=== PATIENT | female | born 1980 | race Two or more races ===

== ENCOUNTER → 2018-04-13 | Outpatient (CLI) | payer BC | END | disposition home or self-care (01) | LOC: CFH 15:48 | PROVIDERS: ATTEND Family Medicine | DX: E04.1 Nontoxic single thyroid nodule (principal); Z86.39 Personal history of other endocrine, nutritional and metabolic disease | CPT/HCPCS: 76536 ==

== ENCOUNTER → 2020-02-29 | Outpatient (CLI) | payer OTHER ==
[2020-02-29 12:43] LABS: BASOPHILS % (AUTO) 1 % (0-1); EOSINOPHILS % (AUTO) 2 % (1-7); LYMPHOCYTES % (AUTO) 34 % (22-44); MEAN CORPUSCULAR HEMOGLOBIN 20.7 pg (27.0-34.8); MEAN CORPUSCULAR HGB CONC 30.6 g/dL (32.4-35.8); MICROSCOPIC NOT IND; MONOCYTES % (AUTO) 9 % (2-9); NEUTROPHILS % (AUTO) 55 % (42-75); PLATELET COUNT 388 x10^3/uL (130-400); RED BLOOD COUNT 4.95 x10^6/uL (3.82-5.3); RED CELL DISTRIBUTION WIDTH 19.4 % (9.6-15.2)
[2020-02-29 12:51] LABS: CHLORIDE 107 mmol/L (98-107)
[2020-02-29 13:20] LABS: MD MORPH REVIEW ONLY
[2020-02-29 13:21] LABS: ANISOCYTOSIS 1+; MICROCYTOSIS 1+; OVALOCYTES 1+
[2020-02-29 13:22] LABS: <PLATELET ESTIMATE> ADEQUATE; <PLT MORPHOLOGY> NORMAL PLT MORPH; HYPOCHROMIA 1+
[2020-02-29 13:30] LABS: % IRON SATURATION 5 % (20-55); ALANINE AMINOTRANSFERASE 65 U/L (12-78); ALBUMIN 3.9 g/dL (3.4-5.0); ALKALINE PHOSPHATASE 74 U/L (45-117); ANION GAP 8 mmol/L (5-15); BILIRUBIN,TOTAL 0.6 mg/dL (0.2-1.0); CALCIUM 9.1 mg/dL (8.5-10.1); CHOL/HDL RATIO 4.2; CHOLESTEROL, TOTAL 190 mg/dL (140-239); CREATININE 0.81 mg/dL (0.55-1.02); FREE T4 (FREE THYROXINE) 1.03 ng/dL (0.76-1.46); HDL CHOL % 24 % (28-40); HDL CHOLESTEROL (DIRECT) 45 mg/dL (40-60); IRON LEVEL 26 mcg/dL (50-170); LDL CHOLESTEROL,CALCULATED 125 mg/dL (54-169); LDL/HDL RATIO 2.8 (0.5-3.0); TOTAL IRON BINDING CAPACITY 525 mcg/dL (250-450); TOTAL PROTEIN 8.4 g/dL (6.4-8.2); TRIGLYCERIDES 101 mg/dL (50-200); VLDL CHOLESTEROL 20 mg/dL (0-25)
== END | disposition home or self-care (01) ==
LOC: LAB 12:00
PROVIDERS: ATTEND Family Medicine
DX: Z00.01 Encounter for general adult medical examination with abnormal findings (principal); E78.2 Mixed hyperlipidemia; E04.9 Nontoxic goiter, unspecified; D64.9 Anemia, unspecified; R10.9 Unspecified abdominal pain
CPT/HCPCS: 36415; 80053; 80061; 81003; 82728; 83540; 83550; 84439; 84442; 84443; 84445; 84480; 85025; 86376; 86800; 87086

== ENCOUNTER → 2020-03-14 | Outpatient (CLI) | payer BC, OTHER | END | disposition home or self-care (01) | LOC: CFH 12:25 | PROVIDERS: ATTEND Family Medicine | DX: Z12.31 Encounter for screening mammogram for malignant neoplasm of breast (principal); E04.1 Nontoxic single thyroid nodule; Z86.39 Personal history of other endocrine, nutritional and metabolic disease | CPT/HCPCS: 76536; 77063; 77067 ==

== ENCOUNTER 2020-10-02 07:58 | Emergency (ER) | payer OTHER ==
[~2020-10-02] VITALS: Ht 167.6 cm; Wt 90.0 kg
[2020-10-02 08:21] VITALS: BP 123/79
--- NOTE | 2020-10-02 08:26 | NUR ---
pt presents to ed from employee health requesting a covid test to be cleared to go back to workl. pt states they are having allergies and need neg covid test to return to work. pt a&o, resps even and unlabored, vss, nadn.
--- NOTE | 2020-10-02 09:30 | NUR ---
covid swab collected and sent to lab
--- NOTE | 2020-10-02 09:38 | NUR ---
dc instructions reviewed
== END 2020-10-02 09:40 | disposition home or self-care (01) ==
LOC: ED 08:25
DX: B34.9 Viral infection, unspecified (principal); Z20.822 Contact with and (suspected) exposure to COVID-19
CPT/HCPCS: 99283; U0003; U0005

== ENCOUNTER 2020-11-18 13:15 | Outpatient (CLI) | payer OTHER ==
[2020-11-18 14:12] LABS: BASOPHILS % (AUTO) 1 % (0-1); EOSINOPHILS % (AUTO) 3 % (1-7); LYMPHOCYTES % (AUTO) 27 % (22-44); MEAN CORPUSCULAR HGB CONC 32.3 g/dL (32.4-35.8); MEAN PLATELET VOLUME 7.5 fL (7.4-10.4); MONOCYTES % (AUTO) 8 % (2-9); NEUTROPHILS % (AUTO) 61 % (42-75); PLATELET COUNT 380 x10^3/uL (130-400); RED BLOOD COUNT 4.73 x10^6/uL (3.82-5.3); RED CELL DISTRIBUTION WIDTH 17.2 % (9.6-15.2)
[2020-11-18 14:23] LABS: ALBUMIN 3.6 g/dL (3.4-5.0); ANION GAP 7 mmol/L (5-15); CALCIUM 8.6 mg/dL (8.5-10.1); CHLORIDE 107 mmol/L (98-107)
[2020-11-18 14:36] LABS: % IRON SATURATION 9 % (20-55); ALANINE AMINOTRANSFERASE 24 U/L (12-78); ALKALINE PHOSPHATASE 74 U/L (45-117); BILIRUBIN,TOTAL 0.5 mg/dL (0.2-1.0); CHOL/HDL RATIO 4.1; CHOLESTEROL, TOTAL 205 mg/dL (140-239); CREATININE 0.72 mg/dL (0.55-1.02); FREE T4 (FREE THYROXINE) 0.91 ng/dL (0.76-1.46); HDL CHOL % 24 % (28-40); HDL CHOLESTEROL (DIRECT) 50 mg/dL (40-60); IRON LEVEL 38 mcg/dL (50-170); LDL CHOLESTEROL,CALCULATED 132 mg/dL (54-169); LDL/HDL RATIO 2.6 (0.5-3.0); TOTAL IRON BINDING CAPACITY 437 mcg/dL (250-450); TRIGLYCERIDES 113 mg/dL (50-200); VLDL CHOLESTEROL 23 mg/dL (0-25)
== END 2020-11-18 23:59 | disposition home or self-care (01) ==
LOC: LAB 13:15
PROVIDERS: ATTEND Internal Medicine
DX: E78.2 Mixed hyperlipidemia (principal); D50.9 Iron deficiency anemia, unspecified; E06.3 Autoimmune thyroiditis
CPT/HCPCS: 36415; 80053; 80061; 82728; 83540; 83550; 84439; 84443; 84481; 85025; 86376; 86800

== ENCOUNTER 2020-11-21 09:39 | Outpatient (CLI) | payer OTHER | END 2020-11-21 23:59 | disposition home or self-care (01) | LOC: RAD 09:39 | PROVIDERS: ATTEND Internal Medicine | DX: R13.19 Other dysphagia (principal); R06.02 Shortness of breath; M54.6 Pain in thoracic spine | CPT/HCPCS: 71046; 74230 ==